=== PATIENT | female | born 1975 | race Caucasian/White ===

== ENCOUNTER 2021-01-27 17:40 | Emergency (ER) | payer OTHER ==
[~2021-01-27] VITALS: Ht 167.6 cm; Wt 68.0 kg
[~2021-01-27 17:40] MED LIST: IBUP200C5 PO
--- NOTE | 2021-01-27 17:45 | NUR ---
Patient brought in by amulance service From assisted living facility for chronic uncontrolled back pain
--- NOTE | 2021-01-27 18:49 | NUR ---
at bedside for assessment
[2021-01-27] MEDS ORDERED: ONDANSETRON 4 MG/2 ML VIAL IV ONE (19:00)
[2021-01-27] MEDS ORDERED: HYDROMORPHONE 1 MG/1 ML DISP.SYRIN IV ONE (19:00)
[2021-01-27] MEDS ORDERED: HYDR-3980 PO (19:11)
[2021-01-27] MEDS ORDERED: ACET-2154 PO (19:11)
[2021-01-27] MEDS ORDERED: SENN-261 PO (19:11)
[2021-01-27] MEDS ORDERED: DOCU100C36 PO (19:11)
[2021-01-27] MEDS ORDERED: HEPA500034 SUBCUT (19:11)
[2021-01-27] MEDS ORDERED: PANT40TA49 PO (19:11)
[2021-01-27] MEDS ORDERED: CYCL5TAB PO (19:11)
[2021-01-27] MEDS ORDERED: DAPT500V2 IV (19:11)
[2021-01-27] MEDS ORDERED: METH10TA2 PO (19:11)
--- NOTE | 2021-01-27 19:12 | NUR ---
Received report from PHUONG Hinton.
[2021-01-27 19:19] LABS: CREATININE 0.8 mg/dL (0.6-1.3); POTASSIUM 3.7 mmol/L (3.5-5.1)
[2021-01-27 19:20] LABS: HEMATOCRIT 24.3 % (31.2-41.9); MEAN CORPUSCULAR HEMOGLOBIN 28.4 uug (24.7-32.8); MEAN CORPUSCULAR VOLUME 89.5 fL (75.5-95.3); PLATELET COUNT (AUTO) 139 K/uL (179-408)
[2021-01-27 19:25] LABS: BILIRUBIN,DIRECT 0.2 mg/dL (0.0-0.2); BILIRUBIN,TOTAL 0.4 mg/dL (0.2-1.0); TOTAL PROTEIN, SERUM 8.9 g/dL (6.4-8.2)
[2021-01-27] MEDS ORDERED: LORAZEPAM 2 MG/1 ML VIAL IV ONE (19:45)
--- NOTE | 2021-01-27 19:51 | NUR ---
Pt being taken down for CT.
[2021-01-27] MEDS ORDERED: LORAZEPAM 2 MG/1 ML VIAL ONE (19:52)
--- NOTE | 2021-01-27 19:52 | NUR ---
Pt taken down for CT.
[2021-01-27 20:01] LABS: *BILIRUBIN,URIN NEGATIVE (NEGATIVE); *BLOOD, URINE 1+ (NEGATIVE); *CLARITY,URINE CLEAR (CLEAR); *COLOR,URINE YELLOW (YELLOW); *KETONES,URINE NEGATIVE (NEGATIVE); *UROBILINOGEN,URINE 0.2 E.U./dl (NORMAL); LEUKOCYTE ESTERASE ,URINE NEGATIVE (NEGATIVE); NITRITE, URINE NEGATIVE (NEGATIVE); UGLUCOSE NEGATIVE (NEGATIVE)
--- NOTE | 2021-01-27 20:05 | NUR ---
Pt returned from CT.
[2021-01-27 20:12] LABS: BACTERIA,URINE NONE SEEN /HPF (NONE SEEN); SQUAMOUS EPITHELIAL CELL,UR FEW /HPF (NONE SEEN)
[2021-01-27 20:13] LABS: URINE AMORPHOUS PHOSPHATES FEW /HPF
--- NOTE | 2021-01-27 22:09 | NUR ---
Received call from patient insurance. Was asked to call Dr Autsin/[facility]. Phone number handed out to Dr Llanes for peer to peer call.
--- NOTE | 2021-01-28 00:04 | NUR ---
Patient is resting comfortably in bed with eyes closed.
--- NOTE | 2021-01-28 00:33 | NUR ---
Franc from [facility] called called facility.
[2021-01-28] MEDS ORDERED: HYDROMORPHONE 1 MG/1 ML DISP.SYRIN ONE (00:56)
[2021-01-28] MEDS ORDERED: ONDANSETRON 4 MG/2 ML VIAL ONE (00:57)
--- NOTE | 2021-01-28 00:58 | NUR ---
Patient is resting comfortably in bed with eyes closed.
[2021-01-28] MEDS ORDERED: ONDANSETRON 4 MG/2 ML VIAL IV ONE ×2 (01:00→03:00)
[2021-01-28] MEDS ORDERED: HYDROMORPHONE 1 MG/1 ML DISP.SYRIN IV ONE ×2 (01:00→03:00)
--- NOTE | 2021-01-28 01:43 | NUR ---
Called [facility] and spoke with Odilia, gave report. Direct number . Patient going to room 522 in [facility].
--- NOTE | 2021-01-28 02:43 | NUR ---
[facility] [phone]. S/W RERE . AMBULANCE ARRANGED FOR TRANSFER TO [facility] ROOM 522/AUTH # [id number]. ETA 4:30 TO 5:00 AM.
--- NOTE | 2021-01-28 04:42 | NUR ---
Patient is resting comfortably in bed with eyes closed.
--- NOTE | 2021-01-28 05:34 | NUR ---
[facility] [address] arrived at facility to take pt to [facility] Pt A/O x4, no SOB or loabored breathing. Denies ny pain/discomfort at this time. [facility] nurse made aware that pt is leaving our facility.
== END 2021-01-28 05:39 | disposition short-term general hospital (02) ==
LOC: ER 17:45
DX: M46.24 Osteomyelitis of vertebra, thoracic region (principal); M46.46 Discitis, unspecified, lumbar region; M51.36 Other intervertebral disc degeneration, lumbar region; M48.061 Spinal stenosis, lumbar region without neurogenic claudication; M25.78 Osteophyte, vertebrae; D64.9 Anemia, unspecified; E46 Unspecified protein-calorie malnutrition; Z68.24 Body mass index [BMI] 24.0-24.9, adult; Z20.822 Contact with and (suspected) exposure to COVID-19; Z90.710 Acquired absence of both cervix and uterus; Z86.14 Personal history of Methicillin resistant Staphylococcus aureus infection; E83.51 Hypocalcemia; R79.89 Other specified abnormal findings of blood chemistry
CPT/HCPCS: 36415; 72128; 72131; 80048; 80076; 81001; 83690; 85025; 87086; 87426; 96374; 96375; 96376; 99285; J1170 ×3; J2060; J2405 ×3